=== PATIENT | female | born 1985 | race African-American/Black ===

== ENCOUNTER 2016-05-21 06:21 | Emergency (ER) | payer MEDICAID, SELFPAY ==
[2016-05-21] MEDS ORDERED: AMOXicillin 250 MG CAP ONE (06:44)
--- NOTE | 2016-05-21 06:54 | ERRECORD ---
[facility] EMERGENCY RECORD HPI COUGH (06:43 JPIP) CHIEF COMPLAINT: Patient presents for evaluation of cough, non-productive, Patient presents for evaluation of also co of sore throat. HISTORIAN: History provided by patient. LOCATION: No localizing symptoms. QUALITY: Symptoms described as wheezing. SEVERITY: Current severity of pain rated as 5/10. TIME COURSE: Sudden onset of symptoms, 2, days ago, There has been no change in the patient's symptoms over time, are constant. ASSOCIATED WITH: No associated chest pain, Associated with chills, Associated with fever, subjective, No associated nausea, Associated with upper respiratory infection, Associated with wheezing. EXACERBATED BY: Patient's condition exacerbated by nothing. RELIEVED BY: Patient's condition relieved by nothing. ROS (06:44 JPIP) CONSTITUTIONAL: Historian reports chills, reports fever. Subjective fever of felt feverish. EYES: Historian denies eye redness. ENT: Historian denies dysphagia, denies rhinorrhea, reports sore throat. RESPIRATORY: Historian reports cough, reports wheezing. GI: Historian denies nausea, denies vomiting. GENITOURINARY FEMALE: Historian reports . SKIN: Historian denies rash, denies skin changes, denies skin lesions. NOTES: All systems reviewed, negative except as described above. PAST MEDICAL HISTORY MEDICAL HISTORY: Past medical history includes history of hypertension, which has not been treated, Patient is noncompliant, VERIFIED 1. (06:33 SWAL) FEMALE SURGICAL HISTORY: Patient has no surgical history,. VERIFIED 05-21-2016. (06:33 SWAL) PSYCHIATRIC HISTORY: No previous psychiatric history, VERIFIED 2017. (06:33 SWAL) SOCIAL HISTORY: Patient is a former tobacco user, Tobacco history notes: STATES QUIT 05/2016, Patient drinks socially, Patient denies drug use,. (06:33 SWAL) FAMILY HISTORY: Family history includes asthma, mother, Family history includes early coronary artery disease, father, Family history includes malignancy, paternal grandmother,. (06:33 SWAL) NOTES: Nursing records reviewed, Medication list reviewed. (06:46 JPIP) KNOWN ALLERGIES &a-1R&a+25V*p+0X*o2354H*c202B*c15G*c2P*p-0X&a-25V&a+1R Name: Apple Mccormick : 1985 F30 MedRec: [id number] AcctNum: [id number] Prepared: Sat May 21, 2016 06:51 by Interface Page 1 of 3 pMD [facility] EMERGENCY RECORD No Known Drug Allergies CURRENT MEDICATIONS (06:32 SWAL) None VITAL SIGNS (06:29 SWAL) VITAL SIGNS: BP: 147/94, Pulse: 82, Resp: 16, Temp: 98.1 (Oral), Pain: 5, O2 sat: 98 on Room Air, Time: 05/21/2016 06:29. PHYSICAL EXAM (06:45 JPIP) CONSTITUTIONAL: Vital Signs Reviewed, Patient afebrile, Pulse normal, Blood pressure, hypertensive, Respiratory rate normal, Normal pulse oximetry, Patient appears, uncomfortable, ill appearing, Patient alert and oriented to person, place and time, Nursing notes reviewed. HEAD: Head exam included findings of head atraumatic, normocephalic. EYES: Eye exam included findings of eyelids normal to inspection, Conjunctiva normal, Sclera normal, no periorbital ecchymosis, no periorbital edema, no periorbital erythema. ENT: Ear exam normal, external ear normal, tympanic membranes normal, no foreign body, no drainage, no bleeding, Pharynx exam normal, not injected, no swelling, symmetrical, Uvula exam normal, midline, no edema, Mouth exam normal, mucous membranes moist. NECK: Neck exam included findings of normal range of motion, Trachea midline, no cervical adenopathy, no tenderness. RESPIRATORY CHEST: Respiratory exam included findings of no respiratory distress, Breath sounds clear, No wheezing, No rales, No rhonchi, Breath sounds not absent, Breath sounds not diminished. CARDIOVASCULAR: Cardiovascular exam included findings of heart rate regular rate and rhythm, Heart sounds normal. UPPER EXTREMITY: Upper extremity exam included findings of inspection normal, Range of motion normal. NEURO: Marge coma scale 15, Neuro exam findings include patient oriented to person, place and time. SKIN: Skin exam included findings of skin warm, dry, and normal in color, no rash. LYMPHATIC: Lymphatic exam included findings of cervical nodes normal, Submandibular normal. PSYCHIATRIC: Affect, flat. MEDICATION ADMINISTRATION SUMMARY Drug Name: Amoxil, Dose Ordered: 1000 mg, Route: Oral, Status: Given, Time: 06:45 05/21/2016, Detailed record available in Medication Service section. PROBLEM LIST No recorded problems &a-1R&a+25V*p+0X*o3641X*c202B*c15G*c2P*p-0X&a-25V&a+1R Name: Apple Mccormick : 1985 F30 MedRec: [id number] AcctNum: [id number] Prepared: Sat May 21, 2016 06:51 by Interface Page 2 of 3 pMD [facility] EMERGENCY RECORD DIAGNOSIS (06:47 JPIP) FINAL: PRIMARY: Acute bronchitis, ADDITIONAL: . PRESCRIPTION Amoxil: CAPSULE (HARD, SOFT, ETC.) : 500 mg : ORAL : Quantity: 1 Unit: mg Route: ORAL Schedule: 3 times a day (after meals) Dispense: 30 May substitute. Refills: No Refills . (06:40 JPIP) NOTES: No refills. (06:40 JPIP) Proventil HFA: HFA AEROSOL WITH ADAPTER (GM) : 90 mcg : INHALATION : Quantity: 2 Unit: puff(s) Route: INHALATION Schedule: every 8 hours PRN Dispense: 1 May substitute. Refills: No Refills . (06:41 JPIP) NOTES: May substitute an MDI of less cost or covered by patients insurance No refills. (06:41 JPIP) DISPOSITION PATIENT: Disposition Type: Discharge, Disposition: *Discharge Home, Condition: Guarded. (06:47 JPIP) Patient left the department. (06:50 SWAL) Peterson: PEDRO LUIS=DO Joshi Joseph SWAL=REJI Victor, Kamini &a-1R&a+25V*p+0X*k3649F*c202B*c15G*c2P*p-0X&a-25V&a+1R Name: Apple Mccormick : 1985 F30 MedRec: [id number] AcctNum: [id number] Prepared: Sat May 21, 2016 06:51 by Interface Page 3 of 3 pMD MTDD
--- NOTE | 2016-05-21 06:59 | PICIS ---
[facility] EMERGENCY RECORD TRIAGE (06:32 SWAL) TRIAGE NOTES: C/O COUGH - "BRONCHITIS" ONSET 2 DAYS. (06:32 SWAL) PATIENT: NAME: Apple Mccormick, AGE: 30, GENDER: female, : Wed 1985, TIME OF GREET: Sat May 21, 2016 06:21, PREFERRED LANGUAGE: Macedonian, ETHNICITY: Not or , ECODE BILLING MAP: [facility], SSN: [id number], Zip Code: [address], KG WEIGHT: [phone], PHONE: , , , PERSON ID: [id number], PAYMENT: [employer] Self Pay, PCP: Paulo Kinney. (06:32 SWAL) COMPLAINT: Cough. (06:32 SWAL) ADMISSION: URGENCY: 3 Urgent, ADMISSION SOURCE: Home, TRANSPORT: Walk-in, BED: TRIAGE. (06:32 SWAL) IMMUNIZATIONS: Notes: VERIFIED 05-21-2016. (06:33 SWAL) SIRS SCORING: Heart Rate 55-109 (0), Temp range 96.8-101.1 (0), respiratory rate 12-24 (0), Mental Status altered: no (0), Infection or Suspected Infection: No. (06:33 SWAL) TRIAGE SCREENING: Patient denies suicidal ideation, Patient denies presence of domestic violence. (06:33 SWAL) LMP: Last menstrual period: 02/01/2016. (06:33 SWAL) PROVIDERS: TRIAGE NURSE: Kamini Victor RN. (06:32 SWAL) VITAL SIGNS: BP 147/94, Pulse 82, Resp 16, Temp 98.1, (Oral), Pain 5, O2 Sat 98, on Room Air, Time 05/21/2016 06:29. (06:29 SWAL) PREVIOUS VISIT ALLERGIES: No Known Drug Allergies. (06:32 SWAL) No Known Drug Allergies. (06:33 SWAL) KNOWN ALLERGIES No Known Drug Allergies CURRENT MEDICATIONS (06:32 SWAL) None VITAL SIGNS (06:29 SWAL) VITAL SIGNS: BP: 147/94, Pulse: 82, Resp: 16, Temp: 98.1 (Oral), Pain: 5, O2 sat: 98 on Room Air, Time: 05/21/2016 06:29. NURSING ASSESSMENT: ENT (06:37 SWAL) CONSTITUTIONAL: Patient arrives ambulatory, Gait steady, History obtained from patient, Patient appears, SORE THROAT, COUGH,, Patient cooperative, Patient alert, Oriented to person, place and time, Skin warm, Skin dry, Skin normal in color, Mucous membranes pink, Mucous membranes moist, Patient complains of COUGH, WHEEZING, SORE THROAT. PAIN: aching pain, Onset of pain 05/18/2016 2 DAYS. ENT: Mucous membranes pink, and moist, Able to swallow, Speech normal, no associated fever, Notes: SORE THROAT. RESPIRATORY/CHEST: Breath sounds clear, Respiratory assessment findings include respiratory effort easy, Respirations regular, Conversing normally, Neck and chest exam findings include trachea &a-1R&a+25V*p+0X*n5261H*c202B*c15G*c2P*p-0X&a-25V&a+1R Name: Apple Mccormick : 1985 F30 MedRec: [id number] AcctNum: [id number] Prepared: Sat May 21, 2016 06:57 by Interface Page 1 of 5 pMD [facility] EMERGENCY RECORD midline, Chest expansion equal, Chest movement symmetrical, Associated with cough, barky, loose. NURSING PROCEDURE: DISCHARGE NOTE (06:48 SWAL) DISCHARGE: Patient discharged to home, ambulating without assistance, driving self, unaccompanied, Summary of Care printed/ provided, Discharge instructions given to patient, Prescriptions given and instructions on side effects given, Name of prescription(s) given: AMOXICILLIN, Above person(s) verbalized understanding of discharge instructions and follow-up care, Patient treated and evaluated by physician. NOTES: Notes: DISCHARGE INSTRUCTIONS REVIEWED AND SIGNED WITH GOOD UNDERSTANDING -LEFT AMBULATORY - STABLE WITH PATIENT TO DRIVE. MEDICATION ADMINISTRATION SUMMARY Drug Name: Amoxil, Dose Ordered: 1000 mg, Route: Oral, Status: Given, Time: 06:45 05/21/2016, Detailed record available in Medication Service section. MEDICATION SERVICE (06:45 [facility]) Amoxil: Order: Amoxil (amoxicillin trihydrate) - Dose: 1000 mg : Oral Schedule: Now Ordered by: Jermaine Joshi DO Entered by: Jermaine Joshi DO Sat May 21, 2016 06:40 , Acknowledged by: Kamini Victor RN Sat May 21, 2016 06:44 Documented as given by: Kamini Victor RN Sat May 21, 2016 06:45 Patient, Medication, Dose, Route and Time verified prior to administration. Amount given: 1000MG, Site: Medication administered P.O., Patient appears Awake and alert- acceptable, Correct patient, time, route, dose and medication confirmed prior to administration, Patient advised of actions and side-effects prior to administration, Allergies confirmed and medications reviewed prior to administration, Administered by SWALKER, Patient in position of comfort, Cart in lowest position, Call light in reach. HPI COUGH (06:43 JPIP) CHIEF COMPLAINT: Patient presents for evaluation of cough, non-productive, Patient presents for evaluation of also co of sore throat. HISTORIAN: History provided by patient. LOCATION: No localizing symptoms. QUALITY: Symptoms described as wheezing. SEVERITY: Current severity of pain rated as 5/10. TIME COURSE: Sudden onset of symptoms, 2, days ago, There has been no change in the patient's symptoms over time, are constant. ASSOCIATED WITH: No associated chest pain, Associated &a-1R&a+25V*p+0X*j7047S*c202B*c15G*c2P*p-0X&a-25V&a+1R Name: Apple Mccormick : 1985 F30 MedRec: [id number] AcctNum: [id number] Prepared: Sat May 21, 2016 06:57 by Interface Page 2 of 5 pMD [facility] EMERGENCY RECORD with chills, Associated with fever, subjective, No associated nausea, Associated with upper respiratory infection, Associated with wheezing. EXACERBATED BY: Patient's condition exacerbated by nothing. RELIEVED BY: Patient's condition relieved by nothing. ROS (06:44 JPIP) CONSTITUTIONAL: Historian reports chills, reports fever. Subjective fever of felt feverish. EYES: Historian denies eye redness. ENT: Historian denies dysphagia, denies rhinorrhea, reports sore throat. RESPIRATORY: Historian reports cough, reports wheezing. GI: Historian denies nausea, denies vomiting. GENITOURINARY FEMALE: Historian reports . SKIN: Historian denies rash, denies skin changes, denies skin lesions. NOTES: All systems reviewed, negative except as described above. PAST MEDICAL HISTORY MEDICAL HISTORY: Past medical history includes history of hypertension, which has not been treated, Patient is noncompliant, VERIFIED 05-21-2016. (06:33 SWAL) FEMALE SURGICAL HISTORY: Patient has no surgical history,. VERIFIED 05-21-2016. (06:33 SWAL) PSYCHIATRIC HISTORY: No previous psychiatric history, VERIFIED 05-21-2016. (06:33 SWAL) SOCIAL HISTORY: Patient is a former tobacco user, Tobacco history notes: STATES QUIT 05/2016, Patient drinks socially, Patient denies drug use,. (06:33 SWAL) FAMILY HISTORY: Family history includes asthma, mother, Family history includes early coronary artery disease, father, Family history includes malignancy, paternal grandmother,. (06:33 SWAL) NOTES: Nursing records reviewed, Medication list reviewed. (06:46 JPIP) PHYSICAL EXAM (06:45 JPIP) CONSTITUTIONAL: Vital Signs Reviewed, Patient afebrile, Pulse normal, Blood pressure, hypertensive, Respiratory rate normal, Normal pulse oximetry, Patient appears, uncomfortable, ill appearing, Patient alert and oriented to person, place and time, Nursing notes reviewed. HEAD: Head exam included findings of head atraumatic, normocephalic. EYES: Eye exam included findings of eyelids normal to inspection, Conjunctiva normal, Sclera normal, no periorbital ecchymosis, no periorbital edema, no periorbital erythema. ENT: Ear exam normal, external ear normal, tympanic membranes &a-1R&a+25V*p+0X*e0352U*c202B*c15G*c2P*p-0X&a-25V&a+1R Name: Apple Mccormick : 1985 F30 MedRec: [id number] AcctNum: [id number] Prepared: Sat May 21, 2016 06:57 by Interface Page 3 of 5 pMD [facility] EMERGENCY RECORD normal, no foreign body, no drainage, no bleeding, Pharynx exam normal, not injected, no swelling, symmetrical, Uvula exam normal, midline, no edema, Mouth exam normal, mucous membranes moist. NECK: Neck exam included findings of normal range of motion, Trachea midline, no cervical adenopathy, no tenderness. RESPIRATORY CHEST: Respiratory exam included findings of no respiratory distress, Breath sounds clear, No wheezing, No rales, No rhonchi, Breath sounds not absent, Breath sounds not diminished. CARDIOVASCULAR: Cardiovascular exam included findings of heart rate regular rate and rhythm, Heart sounds normal. UPPER EXTREMITY: Upper extremity exam included findings of inspection normal, Range of motion normal. NEURO: Marge coma scale 15, Neuro exam findings include patient oriented to person, place and time. SKIN: Skin exam included findings of skin warm, dry, and normal in color, no rash. LYMPHATIC: Lymphatic exam included findings of cervical nodes normal, Submandibular normal. PSYCHIATRIC: Affect, flat. EVENTS TRANSFER: Triage to Emergency Triage. (Sat May 21, 2016 06:32 SWAL) Emergency Triage to Emergency Room -02. (06:34 SWAL) Removed from Emergency Emergency Room -02. (06:50 SWAL) O2SAT INTERPRETATION (06:42 JPIP) O2SAT: Single pulse oximetry, Oxygen saturation 98%, on room air, Oxygen saturation interpretation: Normal, No intervention required. PROBLEM LIST No recorded problems DIAGNOSIS (06:47 JPIP) FINAL: PRIMARY: Acute bronchitis, ADDITIONAL: . DISPOSITION PATIENT: Disposition Type: Discharge, Disposition: *Discharge Home, Condition: Guarded. (06:47 JPIP) Patient left the department. (06:50 SWAL) INSTRUCTION (06:42 JPIP) DISCHARGE: BRONCHITIS, ABX TX (ADULT). FOLLOWUP: [facility], [facility], [address] [place] [address] , . SPECIAL: Finish all your antibiotics Follow up with Primary Care Physician within 72 hours Return to the Emergency Department for increased symptoms problems or concerns &a-1R&a+25V*p+0X*f1203B*c202B*c15G*c2P*p-0X&a-25V&a+1R Name: Apple Mccormick : 1985 F30 MedRec: [id number] AcctNum: [id number] Prepared: Sat May 21, 2016 06:57 by Interface Page 4 of 5 pMD [facility] EMERGENCY RECORD Take acetaminophen for pain or fever. PRESCRIPTION Amoxil: CAPSULE (HARD, SOFT, ETC.) : 500 mg : ORAL : Quantity: 1 Unit: mg Route: ORAL Schedule: 3 times a day (after meals) Dispense: 30 May substitute. Refills: No Refills . (06:40 JPIP) NOTES: No refills. (06:40 JPIP) Proventil HFA: HFA AEROSOL WITH ADAPTER (GM) : 90 mcg : INHALATION : Quantity: 2 Unit: puff(s) Route: INHALATION Schedule: every 8 hours PRN Dispense: 1 May substitute. Refills: No Refills . (06:41 JPIP) NOTES: May substitute an MDI of less cost or covered by patients insurance No refills. (06:41 JPIP) IMAGING *SUPPLY CHARGE SHEET: Image captured from scanner. (06:47 SWAL) *DISCHARGE INSTRUCTIONS RECEIPT: Image captured from scanner. (06:48 SWAL) Peterson: PEDRO LUIS=DO Joshi Joseph SWAL=REJI Victor, Kamini &a-1R&a+25V*p+0X*d5815R*c202B*c15G*c2P*p-0X&a-25V&a+1R Name: Apple Mccormick : 1985 F30 MedRec: [id number] AcctNum: [id number] Prepared: Ian May 21, 2016 06:57 by Interface Page 5 of 5 pMD MTDD
--- NOTE | 2016-05-21 07:02 | PICIS ---
[facility] EMERGENCY RECORD TRIAGE (06:32 SWAL) TRIAGE NOTES: C/O COUGH - "BRONCHITIS" ONSET 2 DAYS. (06:32 SWAL) PATIENT: NAME: Apple Mccormick, AGE: 30, GENDER: female, : Wed 1985, TIME OF GREET: Sat May 21, 2016 06:21, PREFERRED LANGUAGE: Occitan, ETHNICITY: Not or , ECODE BILLING MAP: [facility], SSN: [id number], Zip Code: [address], KG WEIGHT: [phone], PHONE: , , , PERSON ID: [id number], PAYMENT: [employer] Self Pay, PCP: Paulo Kinney. (06:32 SWAL) COMPLAINT: Cough. (06:32 SWAL) ADMISSION: URGENCY: 3 Urgent, ADMISSION SOURCE: Home, TRANSPORT: Walk-in, BED: TRIAGE. (06:32 SWAL) IMMUNIZATIONS: Notes: VERIFIED 05-21-2016. (06:33 SWAL) SIRS SCORING: Heart Rate 55-109 (0), Temp range 96.8-101.1 (0), respiratory rate 12-24 (0), Mental Status altered: no (0), Infection or Suspected Infection: No. (06:33 SWAL) TRIAGE SCREENING: Patient denies suicidal ideation, Patient denies presence of domestic violence. (06:33 SWAL) LMP: Last menstrual period: 02/01/2016. (06:33 SWAL) PROVIDERS: TRIAGE NURSE: Kamini Victor RN. (06:32 SWAL) VITAL SIGNS: BP 147/94, Pulse 82, Resp 16, Temp 98.1, (Oral), Pain 5, O2 Sat 98, on Room Air, Time 05/21/2016 06:29. (06:29 SWAL) PREVIOUS VISIT ALLERGIES: No Known Drug Allergies. (06:32 SWAL) No Known Drug Allergies. (06:33 SWAL) KNOWN ALLERGIES No Known Drug Allergies CURRENT MEDICATIONS (06:32 SWAL) None VITAL SIGNS (06:29 SWAL) VITAL SIGNS: BP: 147/94, Pulse: 82, Resp: 16, Temp: 98.1 (Oral), Pain: 5, O2 sat: 98 on Room Air, Time: 05/21/2016 06:29. NURSING ASSESSMENT: ENT (06:37 SWAL) CONSTITUTIONAL: Patient arrives ambulatory, Gait steady, History obtained from patient, Patient appears, SORE THROAT, COUGH,, Patient cooperative, Patient alert, Oriented to person, place and time, Skin warm, Skin dry, Skin normal in color, Mucous membranes pink, Mucous membranes moist, Patient complains of COUGH, WHEEZING, SORE THROAT. PAIN: aching pain, Onset of pain 05/18/2016 2 DAYS. ENT: Mucous membranes pink, and moist, Able to swallow, Speech normal, no associated fever, Notes: SORE THROAT. RESPIRATORY/CHEST: Breath sounds clear, Respiratory assessment findings include respiratory effort easy, Respirations regular, Conversing normally, Neck and chest exam findings include trachea &a-1R&a+25V*p+0X*[id number]*c202B*c15G*c2P*p-0X&a-25V&a+1R Name: Apple Mccormick : 1985 F30 MedRec: [id number] AcctNum: [id number] Prepared: Sat May 21, 2016 06:57 by Interface Page [address] [facility] EMERGENCY RECORD midline, Chest expansion equal, Chest movement symmetrical, Associated with cough, barky, loose. NURSING PROCEDURE: DISCHARGE NOTE (06:48 SWAL) DISCHARGE: Patient discharged to home, ambulating without assistance, driving self, unaccompanied, Summary of Care printed/ provided, Discharge instructions given to patient, Prescriptions given and instructions on side effects given, Name of prescription(s) given: AMOXICILLIN, Above person(s) verbalized understanding of discharge instructions and follow-up care, Patient treated and evaluated by physician. NOTES: Notes: DISCHARGE INSTRUCTIONS REVIEWED AND SIGNED WITH GOOD UNDERSTANDING -LEFT AMBULATORY - STABLE WITH PATIENT TO DRIVE. MEDICATION ADMINISTRATION SUMMARY Drug Name: Amoxil, Dose Ordered: 1000 mg, Route: Oral, Status: Given, Time: 06:45 05/21/2016, Detailed record available in Medication Service section. MEDICATION SERVICE (06:45 [facility]) Amoxil: Order: Amoxil (amoxicillin trihydrate) - Dose: 1000 mg : Oral Schedule: Now Ordered by: Jermaine Joshi DO Entered by: Jermaine Joshi DO Sat May 21, 2016 06:40 , Acknowledged by: Kamini Victor RN Sat May 21, 2016 06:44 Documented as given by: Kamini Victor RN Sat May 21, 2016 06:45 Patient, Medication, Dose, Route and Time verified prior to administration. Amount given: 1000MG, Site: Medication administered P.O., Patient appears Awake and alert- acceptable, Correct patient, time, route, dose and medication confirmed prior to administration, Patient advised of actions and side-effects prior to administration, Allergies confirmed and medications reviewed prior to administration, Administered by SWALKER, Patient in position of comfort, Cart in lowest position, Call light in reach. HPI COUGH (06:43 JPIP) CHIEF COMPLAINT: Patient presents for evaluation of cough, non-productive, Patient presents for evaluation of also co of sore throat. HISTORIAN: History provided by patient. LOCATION: No localizing symptoms. QUALITY: Symptoms described as wheezing. SEVERITY: Current severity of pain rated as 5/10. TIME COURSE: Sudden onset of symptoms, 2, days ago, There has been no change in the patient's symptoms over time, are constant. ASSOCIATED WITH: No associated chest pain, Associated &a-1R&a+25V*p+0X*y0179O*c202B*c15G*c2P*p-0X&a-25V&a+1R Name: Apple Mccormick : 1985 F30 MedRec: [id number] AcctNum: [id number] Prepared: Sat May 21, 2016 06:57 by Interface Page [address] [facility] EMERGENCY RECORD with chills, Associated with fever, subjective, No associated nausea, Associated with upper respiratory infection, Associated with wheezing. EXACERBATED BY: Patient's condition exacerbated by nothing. RELIEVED BY: Patient's condition relieved by nothing. ROS (06:44 JPIP) CONSTITUTIONAL: Historian reports chills, reports fever. Subjective fever of felt feverish. EYES: Historian denies eye redness. ENT: Historian denies dysphagia, denies rhinorrhea, reports sore throat. RESPIRATORY: Historian reports cough, reports wheezing. GI: Historian denies nausea, denies vomiting. GENITOURINARY FEMALE: Historian reports . SKIN: Historian denies rash, denies skin changes, denies skin lesions. NOTES: All systems reviewed, negative except as described above. PAST MEDICAL HISTORY MEDICAL HISTORY: Past medical history includes history of hypertension, which has not been treated, Patient is noncompliant, VERIFIED 05-21-2016. (06:33 SWAL) FEMALE SURGICAL HISTORY: Patient has no surgical history,. VERIFIED 05-21-2016. (06:33 SWAL) PSYCHIATRIC HISTORY: No previous psychiatric history, VERIFIED 05-21-2016. (06:33 SWAL) SOCIAL HISTORY: Patient is a former tobacco user, Tobacco history notes: STATES QUIT 05/2016, Patient drinks socially, Patient denies drug use,. (06:33 SWAL) FAMILY HISTORY: Family history includes asthma, mother, Family history includes early coronary artery disease, father, Family history includes malignancy, paternal grandmother,. (06:33 SWAL) NOTES: Nursing records reviewed, Medication list reviewed. (06:46 JPIP) PHYSICAL EXAM (06:45 JPIP) CONSTITUTIONAL: Vital Signs Reviewed, Patient afebrile, Pulse normal, Blood pressure, hypertensive, Respiratory rate normal, Normal pulse oximetry, Patient appears, uncomfortable, ill appearing, Patient alert and oriented to person, place and time, Nursing notes reviewed. HEAD: Head exam included findings of head atraumatic, normocephalic. EYES: Eye exam included findings of eyelids normal to inspection, Conjunctiva normal, Sclera normal, no periorbital ecchymosis, no periorbital edema, no periorbital erythema. ENT: Ear exam normal, external ear normal, tympanic membranes &a-1R&a+25V*p+0X*m9884D*c202B*c15G*c2P*p-0X&a-25V&a+1R Name: Apple Mccormick : 1985 F30 MedRec: [id number] AcctNum: [id number] Prepared: Sat May 21, 2016 06:57 by Interface Page [address] [facility] EMERGENCY RECORD normal, no foreign body, no drainage, no bleeding, Pharynx exam normal, not injected, no swelling, symmetrical, Uvula exam normal, midline, no edema, Mouth exam normal, mucous membranes moist. NECK: Neck exam included findings of normal range of motion, Trachea midline, no cervical adenopathy, no tenderness. RESPIRATORY CHEST: Respiratory exam included findings of no respiratory distress, Breath sounds clear, No wheezing, No rales, No rhonchi, Breath sounds not absent, Breath sounds not diminished. CARDIOVASCULAR: Cardiovascular exam included findings of heart rate regular rate and rhythm, Heart sounds normal. UPPER EXTREMITY: Upper extremity exam included findings of inspection normal, Range of motion normal. NEURO: Marge coma scale 15, Neuro exam findings include patient oriented to person, place and time. SKIN: Skin exam included findings of skin warm, dry, and normal in color, no rash. LYMPHATIC: Lymphatic exam included findings of cervical nodes normal, Submandibular normal. PSYCHIATRIC: Affect, flat. EVENTS TRANSFER: Triage to Emergency Triage. (Sat May 21, 2016 06:32 SWAL) Emergency Triage to Emergency Room -02. (06:34 SWAL) Removed from Emergency Emergency Room -02. (06:50 SWAL) O2SAT INTERPRETATION (06:42 JPIP) O2SAT: Single pulse oximetry, Oxygen saturation 98%, on room air, Oxygen saturation interpretation: Normal, No intervention required. PROBLEM LIST No recorded problems DIAGNOSIS (06:47 JPIP) FINAL: PRIMARY: Acute bronchitis, ADDITIONAL: . DISPOSITION PATIENT: Disposition Type: Discharge, Disposition: *Discharge Home, Condition: Guarded. (06:47 JPIP) Patient left the department. (06:50 SWAL) INSTRUCTION (06:42 JPIP) DISCHARGE: BRONCHITIS, ABX TX (ADULT). FOLLOWUP: [facility], [facility], [address] [place] [address] , . SPECIAL: Finish all your antibiotics Follow up with Primary Care Physician within 72 hours Return to the Emergency Department for increased symptoms problems or concerns &a-1R&a+25V*p+0X*f7928R*c202B*c15G*c2P*p-0X&a-25V&a+1R Name: Apple Mccormick : 1985 F30 MedRec: [id number] AcctNum: [id number] Prepared: Sat May 21, 2016 06:57 by Interface Page [address] [facility] EMERGENCY RECORD Take acetaminophen for pain or fever. PRESCRIPTION Amoxil: CAPSULE (HARD, SOFT, ETC.) : 500 mg : ORAL : Quantity: 1 Unit: mg Route: ORAL Schedule: 3 times a day (after meals) Dispense: 30 May substitute. Refills: No Refills . (06:40 JPIP) NOTES: No refills. (06:40 JPIP) Proventil HFA: HFA AEROSOL WITH ADAPTER (GM) : 90 mcg : INHALATION : Quantity: 2 Unit: puff(s) Route: INHALATION Schedule: every 8 hours PRN Dispense: 1 May substitute. Refills: No Refills . (06:41 JPIP) NOTES: May substitute an MDI of less cost or covered by patients insurance No refills. (06:41 JPIP) IMAGING *SUPPLY CHARGE SHEET: Image captured from scanner. (06:47 SWAL) *DISCHARGE INSTRUCTIONS RECEIPT: Image captured from scanner. (06:48 SWAL) Peterson: PEDRO LUIS=DO Joshi Joseph SWAL=REJI Victor, Kamini &a-1R&a+25V*p+0X*d3099R*c202B*c15G*c2P*p-0X&a-25V&a+1R Name: Apple Mccormick : 1985 F30 MedRec: [id number] AcctNum: [id number] Prepared: Ian May 21, 2016 06:57 by Interface Page 5 of 5 pMD MTDD
== END 2016-05-21 06:47 | disposition home or self-care (01) ==
LOC: BURERS 06:21
DX: O99.511 Diseases of the respiratory system complicating pregnancy, first trimester (principal); J20.9 Acute bronchitis, unspecified; O99.89 Other specified diseases and conditions complicating pregnancy, childbirth and the puerperium; I10 Essential (primary) hypertension; Z3A.11 11 weeks gestation of pregnancy
CPT/HCPCS: 99283

== ENCOUNTER 2016-11-30 09:52 | Emergency (ER) | payer BC, OTHER ==
[2016-11-30] MEDS ORDERED: Acetaminophen 500 MG TAB ONE (10:09)
[2016-11-30] MEDS ORDERED: AMOXicillin 250 MG CAP ONE (10:10)
== END 2016-11-30 10:15 | disposition home or self-care (01) ==
LOC: BURERS 09:52
DX: J02.9 Acute pharyngitis, unspecified (principal); I10 Essential (primary) hypertension
CPT/HCPCS: 99282